=== PATIENT | male | born 1975 | race Caucasian/White ===

== ENCOUNTER 2019-02-02 10:34 | Outpatient (RCR) | payer OTHER | END 2019-05-03 | disposition home or self-care (01) | LOC: WSOH | DX: S61.313A Laceration without foreign body of left middle finger with damage to nail, initial encounter (principal); Z98.890 Other specified postprocedural states; F17.210 Nicotine dependence, cigarettes, uncomplicated; Y99.0 Civilian activity done for income or pay ==